=== PATIENT | female | born 1975 | race Caucasian/White ===

== ENCOUNTER 2016-11-26 17:47 | Emergency (ER) | payer OTHER ==
[~2016-11-26 17:47] MED LIST: DESYREL 50 MG T50 MG PO; FERROUS SULFAT325 M2 PO; LANTUS100 UNIT/1 SC; NEURONTIN 300300 MG PO; NOVOLOG 10100 UNITS/ SC; PERCOCET 5-3251 EACH PO; ZYVOX600 MG PO
== END 2016-11-26 23:11 | disposition home or self-care (01) ==
LOC: ER1 17:47
DX: R51 Headache (principal); R11.10 Vomiting, unspecified; H57.8 Other specified disorders of eye and adnexa; E11.9 Type 2 diabetes mellitus without complications; F17.200 Nicotine dependence, unspecified, uncomplicated; Z88.5 Allergy status to narcotic agent; Z88.6 Allergy status to analgesic agent; Z88.8 Allergy status to other drugs, medicaments and biological substances; Z79.4 Long term (current) use of insulin
CPT/HCPCS: 96361; 96374; 96375; 99283; J1200; J1885; J2765

== ENCOUNTER 2020-08-20 17:04 | Emergency (ER) | payer OTHER ==
[~2020-08-20 17:04] MED LIST changes: +ALDACTONE 25MG25 MG PO; +ASPIRIN EC81 MG PO; +ATORVASTATIN CA20 MG PO; +BACTRIM DS TAB1 EACH PO; +BENTYL 20MG TAB20 MG PO; +CARVEDILOL25 MG PO; +CEFUROXIME500 MG PO; +CLOPIDOGREL75 MG PO; +FUROSEMIDE40 MG PO; +IBUPROFEN600 MG PO; +LANTUS INS100 UTS/M1 SC; +LANTUS100 UNIT/1 SQ; +LISINOPRIL10 MG PO; +LISINOPRIL5 MG PO; +LOPRESSOR 25 MG25 MG PO; +NOVOLOG 10100 UNITS2 INJ; +OMNICEF 300 MG300 MG PO; +PHENERGAN 25 MG25 M1 PO; +POTASSIUM CHLO20 ME2 PO; +PROAIR HFA8.5 GM INH; +PROZAC20 MG PO; +TAB-A-VITE1 EACH PO; +TAMIFLU PO; +ZITHROMAX250 MG PO; +ZYVOX 600 MG T600 MG PO
[2020-08-20 23:13] LABS: HEMOGLOBIN 13.4 gm/dl (12.3-15.3); RED BLOOD COUNT 5.48 M/UL (4.00-5.10)
[2020-08-20 23:28] LABS: BUN/CREATININE RATIO 23 (0-10)
[2020-08-21] MEDS ORDERED: NOVOLOG 10100 UNITS/ INJ (00:49)
[2020-08-21] MEDS ORDERED: LASIX40 MG PO (00:49)
[2020-08-21] MEDS ORDERED: LIPITOR20 MG PO (00:49)
[2020-08-21] MEDS ORDERED: LOPRESSOR 25 MG25 MG PO (00:49)
[2020-08-21] MEDS ORDERED: PROZAC20 MG PO (00:49)
[2020-08-21] MEDS ORDERED: K-DUR TAB 20 M20 MEQ PO (00:49)
[2020-08-21] MEDS ORDERED: PLAVIX75 MG PO (00:49)
== END 2020-08-21 01:10 | disposition home or self-care (01) ==
LOC: ER1 17:04
PROVIDERS: Emergency Medicine
DX: I50.9 Heart failure, unspecified (principal); J90 Pleural effusion, not elsewhere classified; R18.8 Other ascites; F17.200 Nicotine dependence, unspecified, uncomplicated; Z76.0 Encounter for issue of repeat prescription; Z88.6 Allergy status to analgesic agent; Z20.822 Contact with and (suspected) exposure to COVID-19
CPT/HCPCS: 71045; 80053; 80307; 81001; 82550; 82553; 83605; 83690; 83874; 83880; 84484; 84703; 85025; 87040; 87086; 93005; 96374; 96375; 99285; J2550; Q9967; U0002

== ENCOUNTER 2020-09-11 22:36 | Inpatient (IN) | payer OTHER ==
[~2020-09-11] VITALS: Ht 160 cm; Wt 77.1 kg
[~2020-09-11 22:36] MED LIST changes: +K-DUR TAB 20 M20 MEQ PO; +LASIX40 MG PO; +LIPITOR20 MG PO; +NOVOLOG 10100 UNITS/ INJ; +PLAVIX75 MG PO
[2020-09-12 04:05] LABS: HEMOGLOBIN 11.7 gm/dl (12.3-15.3); RED BLOOD COUNT 5.18 M/UL (4.00-5.10); WHITE BLOOD COUNT 6.2 K/UL (4.5-11.0)
[2020-09-12 04:13] LABS: BUN/CREATININE RATIO 28 (0-10)
--- NOTE | 2020-09-12 17:57 | NUR ---
SPOKEN WITH DR. TUCKER AND AWARE OF PATIENT LABS, DISCUSS PATIENT CONDITION.
[2020-09-13 05:18] LABS: ACINETOBACTER BAUMANNII Not Detected (Negative); CANDIDA ALBICANS Not Detected (Negative); CANDIDA KRUSEI Not Detected (Negative); CANDIDA TROPICALIS Not Detected (Negative); ENTEROCOCCUS Not Detected (Negative); ESCHERICHIA COLI Not Detected (Negative); HAEMOPHILUS INFLUENZAE Not Detected (Negative); KLEBSIELLA OXYTOCA Not Detected (Negative); KLEBSIELLA PNEUMONIAE Not Detected (Negative); KPC-CARBAPENEM-RESISTANCE GENE Not Detected (Negative); PROTEUS Not Detected (Negative); PSEUDOMONAS AERUGINOSA Not Detected (Negative); SERRATIA MARCESANS Not Detected (Negative); STAPHYLOCOCCUS AUREUS Not Detected (Negative); STREP AGALACTIAE (GROUP B) Not Detected (Negative); STREP PYOGENES (GROUP A) Not Detected (Negative); STREPTOCOCCUS Not Detected (Negative); vanA/B (VANCOMYCIN RESIST GENE Not Detected (Negative)
[2020-09-13 06:32] LABS: STAPHYLOCOCCUS DETECTED (Negative); mecA (METHICILLIN RESIST GENE DETECTED (Negative)
[2020-09-13 06:32] LABS: HEMOGLOBIN 11.9 gm/dl (12.3-15.3); RED BLOOD COUNT 5.25 M/UL (4.00-5.10); WHITE BLOOD COUNT 5.3 K/UL (4.5-11.0)
--- NOTE | 2020-09-13 11:46 | NUR ---
PATIENT AWAKE AND ALERT, TALKING AND STARTED EATING HER LUNCH
--- NOTE | 2020-09-13 15:15 | NUR ---
reported to dr. morales of patient having episode of nsvt this morning per telemetry report. acknowledged
[2020-09-14 03:35] LABS: HEMOGLOBIN 12.3 gm/dl (12.3-15.3); RED BLOOD COUNT 5.45 M/UL (4.00-5.10)
[2020-09-14 03:37] LABS: WHITE BLOOD COUNT 6.7 K/UL (4.5-11.0)
--- NOTE | 2020-09-14 13:46 | NUR ---
REPORTED TO DR. ENGLISH PATIENT HAVING EPISODES OF VOMITING. STATED WILL WRITE ORDER FOR ZOFRAN.
--- NOTE | 2020-09-14 15:46 | NUR ---
REPORTED TO DR. ENGLISH PATIENT VOMITTING WITH DIARRHEA AND INFORMED OF PHENERGAN GIVEN ORDERED. DR. ENGLISH ACKNOWLEDGED AND WILL WRITE ORDERS.
--- NOTE | 2020-09-15 18:50 | NUR ---
20g PIV placed under ultrasound guidance. Call placed to Dr. Lakhani re: GFR < 60. Per conversation, midline was not to be placed.
[2020-09-16 03:32] LABS: HEMOGLOBIN 11.7 gm/dl (12.3-15.3); RED BLOOD COUNT 5.05 M/UL (4.00-5.10)
[2020-09-16 03:38] LABS: WHITE BLOOD COUNT 10.7 K/UL (4.5-11.0)
[2020-09-17 07:31] LABS: HEMOGLOBIN 12.1 gm/dl (12.3-15.3); RED BLOOD COUNT 5.37 M/UL (4.00-5.10)
[2020-09-18 04:51] LABS: HEMOGLOBIN 12.5 gm/dl (12.3-15.3); RED BLOOD COUNT 5.45 M/UL (4.00-5.10); WHITE BLOOD COUNT 8.9 K/UL (4.5-11.0)
[2020-09-19 07:34] LABS: HEMOGLOBIN 12.9 gm/dl (12.3-15.3); RED BLOOD COUNT 5.75 M/UL (4.00-5.10); WHITE BLOOD COUNT 9.4 K/UL (4.5-11.0)
--- NOTE | 2020-09-19 18:19 | NUR ---
I WAS NOTIFIED BY LABORATORY THAT PT HAD A CRITIAL LACTIC ACID VALUE OF 29.9. I NOTIFIED DR. ENGLISH AT 1234 AND HE EXPLAINED THAT THIS WAS LIKELY DUE TO PT'S HEART CONDITION. DR. ENGLISH STATED THAT HE WOULD DRAW MORE BLOOD ON 09/20/2020 TO EVALUATE THE PT. DR. ENGLISH REPORTED THAT HE WOULD ALSO HAVE A CARDIOLOGY CONSULT FOR THE PT. NO FURTHER ACTION WAS NEEDED AT THE TIME, PER DR. ENGLISH.
--- NOTE | 2020-09-19 18:48 | NUR ---
PT WOKE UP YELLING AT 1253 AND STATED "THEY ARE COMING TO GET HER". I REASSURED PT SHE WAS OKAY AND SHE RESTED BACK IN HER BED. PT CONTINUED TO AWAKEN AT TIMES YELLING THROUGHOUT THE AFTERNOON. PT WAS EASILY REDIRECTED AND COMFORTED. WILL CONTINUE TO MONITOR.
[2020-09-20 08:33] LABS: HEMOGLOBIN 12.6 gm/dl (12.3-15.3); RED BLOOD COUNT 5.49 M/UL (4.00-5.10); WHITE BLOOD COUNT 8.7 K/UL (4.5-11.0)
[2020-09-21 06:26] LABS: HEMOGLOBIN 12.1 gm/dl (12.3-15.3); RED BLOOD COUNT 5.29 M/UL (4.00-5.10); WHITE BLOOD COUNT 7.7 K/UL (4.5-11.0)
[2020-09-22 13:14] LABS: ADENOVIRUS F 40/41 Not Detected (Not Detected); ASTROVIRUS Not Detected (Not Detected); C DIFFICILE TOXIN A/B Not Detected (Not Detected); CAMPYLOBACTER Not Detected (Not Detected); CRYPTOSPORIDIUM Not Detected (Not Detected); CYCLOSPORA CAYETANENSIS Not Detected (Not Detected); ENTAMOEBA HISTOLYTICA Not Detected (Not Detected); ENTEROAGGREGATIVE E COLI Detected (Not Detected); ENTEROPATHOGENIC E COLI Detected (Not Detected); ENTEROTOXIGENIC E COLI Not Detected (Not Detected); GIARDIA LAMBLIA Not Detected (Not Detected); NOROVIRUS GI/GII Not Detected (Not Detected); PLESIOMONAS SHIGELLOIDES Not Detected (Not Detected); ROTAVIRUS A Not Detected (Not Detected); SALMONELLA Not Detected (Not Detected); SAPOVIRUS Not Detected (Not Detected); SHIGA-TOXIN-PRODUCING E COLI Not Detected (Not Detected); SHIGELLA/ENTEROINVASIVE E COLI Not Detected (Not Detected); VIBRIO Not Detected (Not Detected); VIBRIO CHOLERAE Not Detected (Not Detected); YERSINIA ENTEROCOLITICA Not Detected (Not Detected)
[2020-09-23 02:43] LABS: HEMOGLOBIN 12.3 gm/dl (12.3-15.3); RED BLOOD COUNT 5.3 M/UL (4.00-5.10); WHITE BLOOD COUNT 9.3 K/UL (4.5-11.0)
--- NOTE | 2020-09-23 14:26 | NUR ---
ok per dr. oates to leave patient without iv access during hospital stay.
[2020-09-24] MEDS ORDERED: COMPAZINE10 MG PO (10:44)
[2020-09-24] MEDS ORDERED: K-DUR TAB 20 M20 MEQ PO (10:44)
[2020-09-24] MEDS ORDERED: FUROSEMIDE20 MG PO (10:44)
[2020-09-24] MEDS ORDERED: PANTOPRAZOLE SO20 MG PO (10:44)
[2020-09-24] MEDS ORDERED: COZAAR 25MG TAB25 MG PO (10:44)
== END 2020-09-24 15:52 | disposition home health service (06) | DRG 602 ==
LOC: ER1 22:36 → CDU 09-12 09:12 → M/S 09-12 09:12
PROVIDERS: Emergency Medicine; Hospitalist; Internal Medicine; Internal Medicine Cardiovascular Disease; Internal Medicine Infectious Disease; Physician Assistant; Physician Assistant Medical; ADMIT Internal Medicine
PROC: B24BZZZ Ultrasonography of Heart with Aorta (ICD-10-PCS; principal; 2020-09-12)
DX: L03.116 Cellulitis of left lower limb (principal); I50.23 Acute on chronic systolic (congestive) heart failure; N17.9 Acute kidney failure, unspecified; K52.1 Toxic gastroenteritis and colitis; I42.0 Dilated cardiomyopathy; I11.0 Hypertensive heart disease with heart failure; L03.115 Cellulitis of right lower limb; Z20.822 Contact with and (suspected) exposure to COVID-19; R11.2 Nausea with vomiting, unspecified; E11.9 Type 2 diabetes mellitus without complications; F17.210 Nicotine dependence, cigarettes, uncomplicated; I27.20 Pulmonary hypertension, unspecified; D64.9 Anemia, unspecified; E78.5 Hyperlipidemia, unspecified; E66.9 Obesity, unspecified; F10.10 Alcohol abuse, uncomplicated; J45.909 Unspecified asthma, uncomplicated; F11.10 Opioid abuse, uncomplicated; R00.0 Tachycardia, unspecified; F15.10 Other stimulant abuse, uncomplicated; F12.10 Cannabis abuse, uncomplicated; B19.20 Unspecified viral hepatitis C without hepatic coma; Z87.442 Personal history of urinary calculi; Z90.49 Acquired absence of other specified parts of digestive tract; Z88.6 Allergy status to analgesic agent; Z88.5 Allergy status to narcotic agent; Z88.8 Allergy status to other drugs, medicaments and biological substances; Z83.3 Family history of diabetes mellitus; Z82.49 Family history of ischemic heart disease and other diseases of the circulatory system; Z91.19 Patient's noncompliance with other medical treatment and regimen; Z79.02 Long term (current) use of antithrombotics/antiplatelets; Z68.30 Body mass index [BMI] 30.0-30.9, adult; Z79.4 Long term (current) use of insulin; Z79.899 Other long term (current) drug therapy
CPT/HCPCS: 36415; 71045; 80048; 80053; 80076; 80202; 80307; 81001; 82550; 82553; 82728; 82962; 83540; 83550; 83605; 83735; 83880; 84100; 84439; 84443; 84484; 84703; 85025; 85027; 85610; 85652; 85730; 86140; 87040; 87045; 87046; 87077; 87150; 87186; 87449; 87507; 93005; 93308; 94640; 94760; 96372; 96374; 96375; 97161; 99285; J0780; J1200; J1335; J1650; J1885; J1940; J2060; J2405; J2550; J3370; J7050; J7070; Q9967; U0002